=== PATIENT | female | born 1990 | race African-American/Black ===

== ENCOUNTER 2018-08-11 13:03 | Inpatient (IN) | payer OTHER ==
[2018-08-11 15:25] VITALS: BMI 27.9
--- NOTE | 2018-08-11 16:57 | HP ---
CIWA Score - CIWA Score Nausea/Vomitin-No Nausea/No Vomiting Anxiety: 2 Agitation: 0-Normal Activity Paroxysmal Sweats: No Perspiration Orientation: 0-Oriented Auditory Disturbances: 0-None Visual Disturbances: 0-None Headache: 0-None Present Admission ROS S - HPI Chief Complaint: patient here requesting detox for etoh use , reports 1/2 gisela diaz x 2 years , reports anxiety if not drinking , nausea , denies seizures , + blackouts , + falls , most recently 2 nights ago , denies injuries . Starts drinking in the mornings , denies tremors . denies other illicits denies tobacco pmhx : CP , HTN pshx : nicole knees and hips (for CP) allergies : nkda Allergies/Adverse Reactions: Allergies Allergy/AdvReac Type Severity Reaction Status Date / Time No Known Allergies Allergy Verified 08/11/18 16:56 - Ebola screening Have you traveled outside of the country in the last 21 days: No (NN) Have you had contact with anyone from an Ebola affected area: No Have you been sick,other than usual withdrawal symptoms: No Do you have a fever: No - Review of Systems Constitutional: No Symptoms Reported EENT: reports: No Symptoms Reported Respiratory: reports: No Symptoms reported Cardiac: reports: No Symptoms Reported GI: reports: No Symptoms Reported : reports: No Symptoms Reported Musculoskeletal: reports: See HPI Integumentary: reports: See HPI Neuro: reports: See HPI Endocrine: reports: No Symptoms Reported, See HPI Hematology: reports: No Symptoms Reported Psychiatric: reports: Orientated x3 (reports dx bipolar II, anxiety, depression , BPD), other Patient History - Smoking Cessation Smoking history: Never smoked Family Disease History - Family Disease History Family Disease History: Heart Disease: Mother (chf,htn) Admission Physical Exam [facility] - Vital Signs Vital Signs: Vital Signs - 24 hr 08/11/18 15:20 Temperature 98.6 F Pulse Rate 106 H Respiratory 20 Rate Blood Pressure 143/104 - Physical General Appearance: Yes: No Apparent Distress, Appropriately Dressed HEENTM: Yes: Hearing grossly Normal, Normocephalic Respiratory: Yes: Chest Non-Tender, Lungs Clear, Normal Breath Sounds Neck: Yes: No masses,lesions,Nodules Breast: Yes: Breast Exam Deferred Cardiology: Yes: Regular Rhythm, Regular Rate, Tachycardia Abdominal: Yes: Non Tender, Soft Genitourinary: Yes: Within Normal Limits Musculoskeletal: Yes: Other (CP - gait antalgic, using cane for stability and balance) Extremities: Yes: Other (decrease ROM nicole LE) Neurological: Yes: Fully Oriented, Alert, Motor Strength 5/5 Integumentary: Yes: Within Normal Limits BHS Breath Alcohol Content Breath Alcohol Content: 0 Urine Pregancy Test - Result Urine Test Results: Negative- NO Line Present Urine Drug Screen - Results Drug Screen Negative: Yes
[2018-08-11] MEDS ORDERED: ACETAMINOPHEN 325 MG TABLET (FP) PO PRN (17:02)
[2018-08-11] MEDS ORDERED: MAGNESIUM CITRATE 300 ML BOTTLE PO PRN (17:02)
[2018-08-11] MEDS ORDERED: MAGNESIUM HYDROX 2400MG/30ML ORAL SUSPENSION 30 ML CUP PO PRN (17:02)
[2018-08-11] MEDS ORDERED: diazePAM 5 MG TABLET PO PRN (17:02)
[2018-08-11] MEDS ORDERED: MAG HYDROX/AL HYDROX/SIMETH 30 ML UNIT-DOSE CUP PO PRN (17:02)
[2018-08-11] MEDS ORDERED: IBUPROFEN 400 MG TABLET (FP) PO PRN (17:02)
[2018-08-11] MEDS: cloNIDine HCL 0.1 MG TABLET PO PRN (20:10)
[2018-08-11] MEDS ORDERED: MELATONIN 5 MG TABLETS PO PRN (22:00)
[2018-08-11] MEDS: diazePAM 5 MG TABLET PO SCH (23:26)
[2018-08-11] MEDS: THIAMINE HCL 100 MG TABLET (FP) PO SCH (23:26)
[2018-08-12] MEDS: diazePAM 5 MG TABLET PO SCH ×3 (06:13→22:32)
[2018-08-12] MEDS: PRENATAL VITAMINS W/ FOLIC ACID TABLET (FP) PO SCH (10:24)
[2018-08-12 10:34] LABS: HEMATOCRIT 33.9 % (32.4-45.2); HEMOGLOBIN 10.4 GM/dL (10.7-15.3); MCH 25.5 pg (25.7-33.7); MCHC 30.8 g/dl (32.0-36.0); MEAN CELL VOLUME 82.9 fl (80-96); MEAN PLT VOLUME 8.6 fl (7.5-11.1); PLATELET COUNT 187 K/MM3 (134-434); RBC 4.08 M/mm3 (3.60-5.2); RDW 18.2 % (11.6-15.6); WHITE BLOOD COUNT 4.7 K/mm3 (4.0-10.0)
[2018-08-12 10:54] LABS: CHLORIDE 104 mmol/L (98-107); SODIUM 142 mmol/L (136-145)
[2018-08-12 11:04] LABS: ALK PHOS 74 U/L (45-117); ANION GAP 13 MMOL/L (8-16); BILIRUBIN,TOTAL 0.4 mg/dL (0.2-1.0); BLOOD UREA NITROGEN 6 mg/dL (7-18); CALCIUM 8.6 mg/dL (8.5-10.1); CO2 25 mmol/L (21-32); CREATININE 0.5 mg/dL (0.55-1.3); GLUCOSE,RANDOM 116 mg/dL (74-106); SGOT/AST 82 U/L (15-37); SGPT/ALT 71 U/L (13-61); TOT PROT 6.3 g/dl (6.4-8.2)
[2018-08-12 12:03] LABS: POTASSIUM 2.7 mmol/L (3.5-5.1)
[2018-08-12] MEDS: cloNIDine HCL 0.1 MG TABLET PO PRN (14:47)
--- NOTE | 2018-08-12 15:33 | PN ---
[facility] CIWA - CIWA Score Nausea/Vomitin-Mild Nausea/No Vomiting Muscle Tremors: 4-Moderate,w/Arms Extend Anxiety: 3 Agitation: 4-Moderately Restless Paroxysmal Sweats: 1-Minimal Palms Moist Orientation: 0-Oriented Tacttile Disturbances: 1-Very Mild Itch/Numbness Auditory Disturbances: 0-None Visual Disturbances: 0-None Headache: 1-Very Mild CIWA-Ar Total Score: 15 S Progress Note (SOAP) Subjective: tremor sweat restlessness anxiety ambulate with cane low potassium serum level no chest pain no shortness or breath Objective: 08/12/18 15:34 Vital Signs Temperature 99.0 F 08/12/18 14:02 Pulse Rate 92 H 08/12/18 14:02 Respiratory Rate 16 08/12/18 14:02 Blood Pressure 144/105 08/12/18 14:02 O2 Sat by Pulse Oximetry (%) Laboratory Last Values WBC 4.7 K/mm3 (4.0-10.0) 08/12/18 07:25 RBC 4.08 M/mm3 (3.60-5.2) 08/12/18 07:25 Hgb 10.4 GM/dL (10.7-15.3) L 08/12/18 07:25 Hct 33.9 % (32.4-45.2) 08/12/18 07:25 MCV 82.9 fl (80-96) 08/12/18 07:25 MCH 25.5 pg (25.7-33.7) L 08/12/18 07:25 MCHC 30.8 g/dl (32.0-36.0) L 08/12/18 07:25 RDW 18.2 % (11.6-15.6) H 08/12/18 07:25 Plt Count 187 K/MM3 (134-434) 08/12/18 07:25 MPV 8.6 fl (7.5-11.1) 08/12/18 07:25 Sodium 142 mmol/L (136-145) 08/12/18 07:25 Potassium 2.7 mmol/L (3.5-5.1) L* 08/12/18 07:25 Chloride 104 mmol/L (98-107) 08/12/18 07:25 Carbon Dioxide 25 mmol/L (21-32) 08/12/18 07:25 Anion Gap 13 MMOL/L (8-16) 08/12/18 07:25 BUN 6 mg/dL (7-18) L 08/12/18 07:25 Creatinine 0.5 mg/dL (0.55-1.3) L 08/12/18 07:25 Creat Clearance w eGFR > 60 (>60) 08/12/18 07:25 Random Glucose 116 mg/dL (74-106) H 08/12/18 07:25 Calcium 8.6 mg/dL (8.5-10.1) 08/12/18 07:25 Total Bilirubin 0.4 mg/dL (0.2-1.0) 08/12/18 07:25 AST 82 U/L (15-37) H 08/12/18 07:25 ALT 71 U/L (13-61) H 08/12/18 07:25 Alkaline Phosphatase 74 U/L (45-117) 08/12/18 07:25 Total Protein 6.3 g/dl (6.4-8.2) L 08/12/18 07:25 Albumin 3.0 g/dl (3.4-5.0) L 08/12/18 07:25 RPR Titer Nonreactive (NONREACTIVE) 08/12/18 07:25 lab noted begin K+ supplement Assessment: 08/12/18 15:35 withdrawal sx low K+ serum Plan: continue detox repeat K+ potassium supplement
[2018-08-12] MEDS: POTASSIUM CHLORIDE TABS 20 MEQ TABLET.ER (FP) PO SCH (16:00)
--- NOTE | 2018-08-12 22:28 | EKG ---
Test Reason : Blood Pressure : / mmHG Vent. Rate : 095 BPM Atrial Rate : 095 BPM P-R Int : 122 ms QRS Dur : 088 ms QT Int : 364 ms P-R-T Axes : 045 042 028 degrees QTc Int : 457 ms POOR DATA QUALITY, INTERPRETATION MAY BE ADVERSELY AFFECTED NORMAL SINUS RHYTHM NONSPECIFIC ST ABNORMALITY ABNORMAL ECG NO PREVIOUS ECGS AVAILABLE Confirmed by DEBRA CHAVEZ MD ([id number]) on 08/12/2018 10:28:32 PM Referred By: Confirmed By:DEBRA CHAVEZ MD
[2018-08-12] MEDS: THIAMINE HCL 100 MG TABLET (FP) PO SCH (22:32)
--- NOTE | 2018-08-13 09:04 | CONSULT ---
[facility] Psychiatric Consult - Data Date of interview: 08/13/18 Admission source: [facility] Identifying data: This is 27 years old female, poor historian, single, living alone, with psychiatric hospitalization history, with history of Bipolar dsorder , patient here is reporting alcohol withdrawal symptoms and requesting detox for alcoihol use , reports 1/2 gallon vodka x 2 years. Substance Abuse History: Patient reports abusing Alcohol, denies street drugs abuse, dependence Medical History: HTN, Cerebral Palsy history Psychiatric History: As per computer carries Bipola Disorder II, reports most recent psychiatrioc hospitalization on about 2 months ago at [facility] due to depressed mood and suicidal ideations, reports suicidal attempt by OD 2 years ago, currently on Cymbalta 60mg poqd, Gabapentin 100mg po tid, refusing to restart Gabapentin. Denies suicidal , homicidal ideations at this time. Physical/Sexual Abuse/Trauma History: Unclear Additional Comment: Cymbalta 60mg poqd Mental Status Exam - Mental Status Exam Alert and Oriented to: Person Cognitive Function: Fair Patient Appearance: Unkempt Mood: Sad, Withdrawn Affect: Flat Patient Behavior: Sedated Speech Pattern: Delayed Voice Loudness: Mildly Soft/Quiet Thought Process: Circumstantial Thought Disorder: Being Controlled Hallucinations: Denies Suicidal Ideation: Denies Homicidal Ideation: Denies Insight/Judgement: Fair Sleep: Difficulty falling asleep Appetite: Fair Muscle strength/Tone: Mild Hypotonicity Gait/Station: Shuffling Additional Comments: Cymbalta 60mg poqd Psychiatric Findings - Problem List ([place] 1, 2,3) (1) Alcohol dependence Current Visit: Yes Status: Acute (2) Bipolar disorder Current Visit: Yes Status: Acute (3) Alcohol-induced mood disorder Current Visit: Yes Status: Acute (4) HTN (hypertension) Current Visit: Yes Status: Acute (5) Cerebral palsy Current Visit: Yes Status: Acute - Initial Treatment Plan Initial Treatment Plan: Cymbalta 60mg poqd
[2018-08-13] MEDS: diazePAM 5 MG TABLET PO SCH ×2 (13:27→22:22)
[2018-08-13] MEDS: PRENATAL VITAMINS W/ FOLIC ACID TABLET (FP) PO SCH (13:27)
[2018-08-13] MEDS: POTASSIUM CHLORIDE TABS 20 MEQ TABLET.ER (FP) PO SCH (13:27)
[2018-08-13] MEDS: DULoxetine HCL 60 MG CAPSULE.DR PO SCH (13:27)
--- NOTE | 2018-08-13 16:34 | PN ---
S CIWA - CIWA Score Nausea/Vomitin-No Nausea/No Vomiting Muscle Tremors: 4-Moderate,w/Arms Extend Anxiety: 2 Agitation: 3 Paroxysmal Sweats: 1-Minimal Palms Moist Orientation: 0-Oriented Tacttile Disturbances: 1-Very Mild Itch/Numbness Auditory Disturbances: 0-None Visual Disturbances: 0-None Headache: 1-Very Mild CIWA-Ar Total Score: 12 BHS Progress Note (SOAP) Subjective: tremor sweat anxiety trouble sleep at night Objective: 08/13/18 16:30 Vital Signs Temperature 97.7 F 08/13/18 13:04 Pulse Rate 91 H 08/13/18 13:04 Respiratory Rate 20 08/13/18 13:04 Blood Pressure 129/96 08/13/18 13:04 O2 Sat by Pulse Oximetry (%) Laboratory Last Values WBC 4.7 K/mm3 (4.0-10.0) 08/12/18 07:25 RBC 4.08 M/mm3 (3.60-5.2) 08/12/18 07:25 Hgb 10.4 GM/dL (10.7-15.3) L 08/12/18 07:25 Hct 33.9 % (32.4-45.2) 08/12/18 07:25 MCV 82.9 fl (80-96) 08/12/18 07:25 MCH 25.5 pg (25.7-33.7) L 08/12/18 07:25 MCHC 30.8 g/dl (32.0-36.0) L 08/12/18 07:25 RDW 18.2 % (11.6-15.6) H 08/12/18 07:25 Plt Count 187 K/MM3 (134-434) 08/12/18 07:25 MPV 8.6 fl (7.5-11.1) 08/12/18 07:25 Sodium 142 mmol/L (136-145) 08/12/18 07:25 Potassium 3.3 mmol/L (3.5-5.1) L 08/13/18 06:00 Chloride 104 mmol/L (98-107) 08/12/18 07:25 Carbon Dioxide 25 mmol/L (21-32) 08/12/18 07:25 Anion Gap 13 MMOL/L (8-16) 08/12/18 07:25 BUN 6 mg/dL (7-18) L 08/12/18 07:25 Creatinine 0.5 mg/dL (0.55-1.3) L 08/12/18 07:25 Creat Clearance w eGFR > 60 (>60) 08/12/18 07:25 Random Glucose 116 mg/dL (74-106) H 08/12/18 07:25 Calcium 8.6 mg/dL (8.5-10.1) 08/12/18 07:25 Total Bilirubin 0.4 mg/dL (0.2-1.0) 08/12/18 07:25 AST 82 U/L (15-37) H 08/12/18 07:25 ALT 71 U/L (13-61) H 08/12/18 07:25 Alkaline Phosphatase 74 U/L (45-117) 08/12/18 07:25 Total Protein 6.3 g/dl (6.4-8.2) L 08/12/18 07:25 Albumin 3.0 g/dl (3.4-5.0) L 08/12/18 07:25 RPR Titer Nonreactive (NONREACTIVE) 08/12/18 07:25 lab noted low K+ Assessment: 08/13/18 16:32 withdrawal sx continue K+ Plan: continue detox
[2018-08-13] MEDS: THIAMINE HCL 100 MG TABLET (FP) PO SCH (22:21)
[2018-08-13] MEDS: cloNIDine HCL 0.1 MG TABLET PO PRN (22:22)
[2018-08-14] MEDS: DULoxetine HCL 60 MG CAPSULE.DR PO SCH (10:20)
[2018-08-14] MEDS: POTASSIUM CHLORIDE TABS 20 MEQ TABLET.ER (FP) PO SCH (10:20)
[2018-08-14] MEDS: PRENATAL VITAMINS W/ FOLIC ACID TABLET (FP) PO SCH (10:21)
[2018-08-14] MEDS: diazePAM 5 MG TABLET PO SCH ×2 (10:21→22:26)
--- NOTE | 2018-08-14 16:08 | PN ---
S Progress Note (SOAP) Subjective: feeling better sleep better at night no tremor no gi distress Objective: 08/14/18 16:07 Vital Signs Temperature 97.7 F 08/14/18 14:00 Pulse Rate 95 H 08/14/18 14:00 Respiratory Rate 20 08/14/18 14:00 Blood Pressure 149/102 08/14/18 14:00 O2 Sat by Pulse Oximetry (%) Laboratory Last Values WBC 4.7 K/mm3 (4.0-10.0) 08/12/18 07:25 RBC 4.08 M/mm3 (3.60-5.2) 08/12/18 07:25 Hgb 10.4 GM/dL (10.7-15.3) L 08/12/18 07:25 Hct 33.9 % (32.4-45.2) 08/12/18 07:25 MCV 82.9 fl (80-96) 08/12/18 07:25 MCH 25.5 pg (25.7-33.7) L 08/12/18 07:25 MCHC 30.8 g/dl (32.0-36.0) L 08/12/18 07:25 RDW 18.2 % (11.6-15.6) H 08/12/18 07:25 Plt Count 187 K/MM3 (134-434) 08/12/18 07:25 MPV 8.6 fl (7.5-11.1) 08/12/18 07:25 Sodium 142 mmol/L (136-145) 08/12/18 07:25 Potassium 3.5 mmol/L (3.5-5.1) 08/14/18 07:00 Chloride 104 mmol/L (98-107) 08/12/18 07:25 Carbon Dioxide 25 mmol/L (21-32) 08/12/18 07:25 Anion Gap 13 MMOL/L (8-16) 08/12/18 07:25 BUN 6 mg/dL (7-18) L 08/12/18 07:25 Creatinine 0.5 mg/dL (0.55-1.3) L 08/12/18 07:25 Creat Clearance w eGFR > 60 (>60) 08/12/18 07:25 Random Glucose 116 mg/dL (74-106) H 08/12/18 07:25 Calcium 8.6 mg/dL (8.5-10.1) 08/12/18 07:25 Total Bilirubin 0.4 mg/dL (0.2-1.0) 08/12/18 07:25 AST 82 U/L (15-37) H 08/12/18 07:25 ALT 71 U/L (13-61) H 08/12/18 07:25 Alkaline Phosphatase 74 U/L (45-117) 08/12/18 07:25 Total Protein 6.3 g/dl (6.4-8.2) L 08/12/18 07:25 Albumin 3.0 g/dl (3.4-5.0) L 08/12/18 07:25 RPR Titer Nonreactive (NONREACTIVE) 08/12/18 07:25 lab noted Assessment: 08/14/18 16:08 mild withdrawal sx Plan: medically supervised detox
[2018-08-14] MEDS: cloNIDine HCL 0.1 MG TABLET PO PRN (16:10)
[2018-08-14] MEDS ORDERED: SPIRONOLACTONE 25 MG TABLET (FP) PO ONE (18:45)
[2018-08-14] MEDS: THIAMINE HCL 100 MG TABLET (FP) PO SCH (22:26)
[2018-08-15] MEDS: DULoxetine HCL 60 MG CAPSULE.DR PO SCH (09:05)
[2018-08-15] MEDS: PRENATAL VITAMINS W/ FOLIC ACID TABLET (FP) PO SCH (09:06)
[2018-08-15] MEDS ORDERED: diazePAM 5 MG TABLET PO SCH (10:00)
[2018-08-15 14:08] VITALS: BP 130/76; PULSE 81; TEMP 98.2
== END 2018-08-15 14:21 | disposition home or self-care (01) | DRG 775 ==
LOC: YASAS 13:03 → Y6N 17:17
PROC: HZ2ZZZZ Detoxification Services for Substance Abuse Treatment (ICD-10-PCS; principal; 2018-08-11)
DX: F10.20 Alcohol dependence, uncomplicated (principal); F10.24 Alcohol dependence with alcohol-induced mood disorder; F31.81 Bipolar II disorder; F41.8 Other specified anxiety disorders; I10 Essential (primary) hypertension; G80.9 Cerebral palsy, unspecified
CPT/HCPCS: 36415; 80053; 84132; 85027; 86593; 93005; 93010; J0735